=== PATIENT | male | born 1975 | race Caucasian/White ===

== ENCOUNTER 2019-01-20 14:03 | Emergency (ER) | payer MEDICARE, MEDICAID ==
[~2019-01-20] VITALS: Ht 170.2 cm; Wt 82.1 kg
[~2019-01-20 14:03] MED LIST: ARIP5TAB13; CELE100C; TRAZ300T2 PO
[2019-01-20 14:08] VITALS: BP 103/61
--- NOTE | 2019-01-20 14:23 | NUR ---
PT IN VIEW OF PT FOR SI.
--- NOTE | 2019-01-20 14:43 | NUR ---
Pt to rm 40, ambulatory with steady gait. Pt states he has been feeling depressed for the last couple days. Pt states "This happens to me sometimes". Pt denies precipitating factor to this episode. Pt states he would jump off a buliding to harm himself. Pt pleasant and cooperative with assessment and POC. All pt belongings placed in one bag, labeled with pt sticker and secured in locker. Pt positioned for comfort in bed, denies needs. Room is secured, sitter within eyesight of pt, all safety measures observed.
[2019-01-20 14:58] LABS: BASOPHILS # (AUTO) 0.04 x10^3/uL (0-0.1); BASOPHILS % (AUTO) 1 % (0-1); EOSINOPHILS # (AUTO) 0.19 x10^3/uL (0-0.4); EOSINOPHILS % (AUTO) 3 % (1-7); LYMPHOCYTES % (AUTO) 26 % (22-44); MD NO; MEAN CORPUSCULAR HEMOGLOBIN 32.6 pg (27.5-34.5); MEAN CORPUSCULAR HGB CONC 33.9 g/dL (33.2-36.2); MEAN CORPUSCULAR VOLUME 96.1 fL (81-97); MEAN PLATELET VOLUME 7.2 fL (7.4-10.4); MONOCYTES # (AUTO) 0.26 x10^3/uL (0.2-0.8); MONOCYTES % (AUTO) 4 % (2-9); NEUTROPHILS # (AUTO) 3.81 x10^3/uL (1.8-6.8); NEUTROPHILS % (AUTO) 66 % (42-75); PLATELET COUNT 178 x10^3/uL (130-400); RED BLOOD COUNT 4.75 x10^6/uL (4.38-5.82); RED CELL DISTRIBUTION WIDTH 12.6 % (9.4-14.8)
[2019-01-20 15:08] LABS: ALANINE AMINOTRANSFERASE 29 U/L (12-78); ALBUMIN 3.7 g/dL (3.4-5.0); ANION GAP 8 mmol/L (5-15); CALCIUM 8.8 mg/dL (8.5-10.1); CHLORIDE 108 mmol/L (98-107); CREATININE 1.09 mg/dL (0.7-1.3); SALICYLATE LEVEL 2.9 mg/dL (2.8-20.0)
[2019-01-20 15:11] LABS: ALKALINE PHOSPHATASE 67 U/L (45-117); BILIRUBIN,TOTAL 0.2 mg/dL (0.2-1.0); TOTAL PROTEIN 6.9 g/dL (6.4-8.2)
[2019-01-20 15:45] LABS: AMPHETAMINE SCREEN, URINE Negative (Negative); BARBITURATE SCREEN, URINE Negative (Negative); BENZODIAZEPINE SCREEN, URINE Negative (Negative); CANNABINOID SCREEN, URINE Negative (Negative); COCAINE SCREEN, URINE Negative (Negative); METHADONE SCREEN, URINE Negative (Negative); OPIATE SCREEN, URINE Negative (Negative)
--- NOTE | 2019-01-20 16:02 | NUR ---
Report to Aile[facility] CORRAL[facility]. Meal tray ordered for pt.
[2019-01-20] MEDS ORDERED: PRAZ2CAP2 PO (21:27)
[2019-01-20] MEDS ORDERED: METO-282 PO (21:30)
[2019-01-20] MEDS ORDERED: CARB200T4 PO (21:31)
[2019-01-20] MEDS ORDERED: BENZ2TAB6 PO (21:33)
[2019-01-20] MEDS ORDERED: CITA20TA9 PO (21:35)
[2019-01-20] MEDS ORDERED: ZOLP10TA PO (21:36)
== END 2019-01-20 17:01 ==
LOC: ED 16:05
DX: R45.851 Suicidal ideations (principal); F32.9 Major depressive disorder, single episode, unspecified; F17.200 Nicotine dependence, unspecified, uncomplicated
CPT/HCPCS: 36415; 80053; 80307; 85025; 99285

== ENCOUNTER 2020-03-20 18:14 | Inpatient (IN) | payer MEDICARE, MEDICAID ==
[~2020-03-20] VITALS: Ht 170.2 cm; Wt 92.6 kg
[~2020-03-20 18:14] MED LIST changes: +ARIP5TAB56 PO; +BENZ2TAB6 PO; +CARB200T4 PO; +CITA20TA9 PO; +HYDR25CA94 PO; +METO-282 PO; +METO25TA91 PO; +PRAZ2CAP2 PO; +TRAZ150T62 PO; +ZOLP10TA PO
[2020-03-20] MEDS ORDERED: ONDANSETRON ODT 4 MG PO PRN (20:00)
[2020-03-20] MEDS ORDERED: ACETAMINOPHEN 325 MG TABLET PO PRN (20:00)
[2020-03-20] MEDS ORDERED: BISACODYL 10 MG SUPP PR PRN (20:00)
[2020-03-20] MEDS ORDERED: POLYETHYLENE GLYCOL 17 GM PACKET PO PRN (20:00)
[2020-03-20] MEDS ORDERED: DOCUSATE 100 MG CAPSULE PO PRN (20:00)
[2020-03-20 20:54] VITALS: BP 111/73
[2020-03-20] MEDS ORDERED: PLEASE ENTER HEIGHT AND WEIGHT MC SCH (21:00)
[2020-03-20 21:30] VITALS: BP 111/73
[2020-03-20] MEDS: CARBAMAZEPINE 200 MG TABLET PO SCH (21:33)
[2020-03-20] MEDS: ARIPIPRAZOLE 10 MG TABLET PO SCH (21:34)
[2020-03-21 07:04] LABS: BASOPHILS # (AUTO) 0.01 x10^3/uL (0-0.1); BASOPHILS % (AUTO) 0 % (0-1); EOSINOPHILS % (AUTO) 5 % (1-7); LYMPHOCYTES % (AUTO) 25 % (22-44); MD NO; MEAN CORPUSCULAR VOLUME 96.9 fL (81-97); MEAN PLATELET VOLUME 7.3 fL (7.4-10.4); MONOCYTES # (AUTO) 0.37 x10^3/uL (0.2-0.8); MONOCYTES % (AUTO) 7 % (2-9); NEUTROPHILS # (AUTO) 3.57 x10^3/uL (1.8-6.8); NEUTROPHILS % (AUTO) 63 % (42-75); PLATELET COUNT 148 x10^3/uL (130-400); RED BLOOD COUNT 5.56 x10^6/uL (4.38-5.82); RED CELL DISTRIBUTION WIDTH 13.6 % (9.4-14.8)
[2020-03-21 07:16] VITALS: BP 110/71
[2020-03-21 07:19] LABS: ALANINE AMINOTRANSFERASE 34 U/L (12-78); ALBUMIN 3.7 g/dL (3.4-5.0); CALCIUM 9.4 mg/dL (8.5-10.1); CHLORIDE 109 mmol/L (98-107)
[2020-03-21 07:34] LABS: ALKALINE PHOSPHATASE 63 U/L (45-117); BILIRUBIN,TOTAL 0.6 mg/dL (0.2-1.0); CHOL/HDL RATIO 3.7; CHOLESTEROL, TOTAL 168 mg/dL (140-239); CREATININE 1.27 mg/dL (0.7-1.3); FREE T4 (FREE THYROXINE) 1.06 ng/dL (0.76-1.46); HDL CHOL % 27 % (26-37); HDL CHOLESTEROL (DIRECT) 45 mg/dL (40-60); LDL CHOLESTEROL,CALCULATED 95 mg/dL (54-169); LDL/HDL RATIO 2.1 (0.5-3.0); TOTAL PROTEIN 7.2 g/dL (6.4-8.2); TRIGLYCERIDES 141 mg/dL (50-200); VLDL CHOLESTEROL 28 mg/dL (0-25)
[2020-03-21 07:35] LABS: ANION GAP 5 mmol/L (5-15)
[2020-03-21] MEDS: CARBAMAZEPINE 200 MG TABLET PO SCH ×2 (08:12→20:14)
[2020-03-21] MEDS: ARIPIPRAZOLE 10 MG TABLET PO SCH ×2 (08:12→20:14)
[2020-03-21] MEDS: CITALOPRAM 20 MG TABLET PO SCH (08:12)
[2020-03-21 08:20] LABS: MICROSCOPIC NOT IND
[2020-03-21 08:34] LABS: AMPHETAMINE SCREEN, URINE Negative (Negative); BARBITURATE SCREEN, URINE Negative (Negative); BENZODIAZEPINE SCREEN, URINE Negative (Negative); CANNABINOID SCREEN, URINE Negative (Negative); COCAINE SCREEN, URINE Negative (Negative); METHADONE SCREEN, URINE Negative (Negative); OPIATE SCREEN, URINE Negative (Negative)
[2020-03-21] MEDS ORDERED: ALBUTEROL HFA 90 MCG/SPRAY INH PRN (11:30)
[2020-03-21 19:36] VITALS: BP 117/77
[2020-03-21] MEDS: PRAZOSIN 2 MG CAPSULE PO SCH (20:14)
[2020-03-22 07:05] VITALS: BP 112/70
[2020-03-22] MEDS: CITALOPRAM 20 MG TABLET PO SCH (08:04)
[2020-03-22] MEDS: METOPROLOL SUCCINATE 25 MG TAB.ER.24H PO SCH (08:04)
[2020-03-22] MEDS: CARBAMAZEPINE 200 MG TABLET PO SCH ×2 (08:04→20:32)
[2020-03-22] MEDS: ARIPIPRAZOLE 10 MG TABLET PO SCH ×2 (08:04→20:32)
[2020-03-22 19:30] VITALS: BP 130/85
[2020-03-22] MEDS: PRAZOSIN 2 MG CAPSULE PO SCH (20:33)
[2020-03-23 07:59] VITALS: BP 111/68
[2020-03-23] MEDS: METOPROLOL SUCCINATE 25 MG TAB.ER.24H PO SCH (08:42)
[2020-03-23] MEDS: CARBAMAZEPINE 200 MG TABLET PO SCH ×2 (08:42→20:19)
[2020-03-23] MEDS: ARIPIPRAZOLE 10 MG TABLET PO SCH ×2 (08:43→20:18)
[2020-03-23] MEDS ORDERED: CITALOPRAM 20 MG TABLET PO SCH (09:00)
[2020-03-23] MEDS ORDERED: ARIP10TA33 PO (10:43)
[2020-03-23] MEDS ORDERED: ALBU18HF INH (10:43)
[2020-03-23] MEDS ORDERED: FURO-93 PO (10:43)
[2020-03-23] MEDS ORDERED: HYDR50CA PO (10:43)
[2020-03-23] MEDS ORDERED: HYDROXYZINE PAMOATE 50MG CAP PO PRN (13:00)
[2020-03-23 19:50] VITALS: BP 104/67
[2020-03-23] MEDS: MELATONIN 5 MG TABLET PO PRN (20:18)
[2020-03-23] MEDS: PRAZOSIN 2 MG CAPSULE PO SCH (20:19)
[2020-03-23] MEDS: ZOLPIDEM 10MG TABLET PO PRN (20:19)
[2020-03-23] MEDS ORDERED: CARBAMAZEPINE 200 MG TABLET PO SCH (21:00)
[2020-03-24 07:02] VITALS: BP 112/77
[2020-03-24] MEDS: CARBAMAZEPINE 200 MG TABLET PO SCH ×2 (08:16→20:29)
[2020-03-24] MEDS: ARIPIPRAZOLE 10 MG TABLET PO SCH ×2 (08:17→20:28)
[2020-03-24] MEDS: CITALOPRAM 20 MG TABLET PO SCH (08:17)
[2020-03-24] MEDS: METOPROLOL SUCCINATE 25 MG TAB.ER.24H PO SCH (08:17)
[2020-03-24] MEDS: FUROSEMIDE 20 MG TABLET PO SCH (08:17)
[2020-03-24] MEDS ORDERED: ARIPIPRAZOLE 10 MG TABLET PO SCH (09:00)
[2020-03-24 20:00] VITALS: BP 119/68
[2020-03-24] MEDS: PRAZOSIN 2 MG CAPSULE PO SCH (20:28)
[2020-03-24] MEDS: ZOLPIDEM 10MG TABLET PO PRN (20:28)
[2020-03-24] MEDS: MELATONIN 5 MG TABLET PO PRN (20:29)
[2020-03-25 07:00] VITALS: BP 113/71
[2020-03-25] MEDS: METOPROLOL SUCCINATE 25 MG TAB.ER.24H PO SCH (07:52)
[2020-03-25] MEDS: CARBAMAZEPINE 200 MG TABLET PO SCH ×2 (07:53→20:39)
[2020-03-25] MEDS: CITALOPRAM 20 MG TABLET PO SCH (07:53)
[2020-03-25] MEDS: FUROSEMIDE 20 MG TABLET PO SCH (07:53)
[2020-03-25] MEDS: ARIPIPRAZOLE 10 MG TABLET PO SCH ×2 (07:54→20:34)
[2020-03-25 20:07] VITALS: BP 124/78
[2020-03-25] MEDS: ZOLPIDEM 10MG TABLET PO PRN (20:33)
[2020-03-25] MEDS: MELATONIN 5 MG TABLET PO PRN (20:34)
[2020-03-25] MEDS: PRAZOSIN 2 MG CAPSULE PO SCH (20:34)
[2020-03-26 07:39] VITALS: BP 100/65
[2020-03-26] MEDS: CARBAMAZEPINE 200 MG TABLET PO SCH ×2 (08:45→19:57)
[2020-03-26] MEDS: METOPROLOL SUCCINATE 25 MG TAB.ER.24H PO SCH (08:45)
[2020-03-26] MEDS: FUROSEMIDE 20 MG TABLET PO SCH (08:45)
[2020-03-26] MEDS: SERTRALINE 50MG TABLET PO SCH (08:45)
[2020-03-26] MEDS: ARIPIPRAZOLE 10 MG TABLET PO SCH ×2 (08:46→19:57)
[2020-03-26 19:45] VITALS: BP 99/63
[2020-03-26] MEDS: MELATONIN 5 MG TABLET PO PRN (19:56)
[2020-03-26] MEDS: ZOLPIDEM 10MG TABLET PO PRN (19:56)
[2020-03-26] MEDS: PRAZOSIN 2 MG CAPSULE PO SCH (19:57)
[2020-03-27 07:01] VITALS: BP 105/68
[2020-03-27] MEDS: METOPROLOL SUCCINATE 25 MG TAB.ER.24H PO SCH (09:00)
[2020-03-27] MEDS: CARBAMAZEPINE 200 MG TABLET PO SCH ×2 (09:00→20:04)
[2020-03-27] MEDS: FUROSEMIDE 20 MG TABLET PO SCH (09:00)
[2020-03-27] MEDS: SERTRALINE 50MG TABLET PO SCH (09:00)
[2020-03-27] MEDS: ARIPIPRAZOLE 10 MG TABLET PO SCH ×2 (09:00→20:04)
[2020-03-27 19:56] VITALS: BP 106/68
[2020-03-27] MEDS: ZOLPIDEM 10MG TABLET PO PRN (20:04)
[2020-03-27] MEDS: MELATONIN 5 MG TABLET PO PRN (20:04)
[2020-03-27] MEDS: PRAZOSIN 2 MG CAPSULE PO SCH (20:04)
[2020-03-28 07:08] VITALS: BP 110/70
[2020-03-28] MEDS: SERTRALINE 50MG TABLET PO SCH (08:06)
[2020-03-28] MEDS: CARBAMAZEPINE 200 MG TABLET PO SCH ×2 (08:06→20:08)
[2020-03-28] MEDS: METOPROLOL SUCCINATE 25 MG TAB.ER.24H PO SCH (08:06)
[2020-03-28] MEDS: ARIPIPRAZOLE 10 MG TABLET PO SCH ×2 (08:07→20:08)
[2020-03-28] MEDS: FUROSEMIDE 20 MG TABLET PO SCH (08:35)
[2020-03-28 19:41] VITALS: BP 113/70
[2020-03-28] MEDS: ZOLPIDEM 10MG TABLET PO PRN (20:08)
[2020-03-28] MEDS: MELATONIN 5 MG TABLET PO PRN (20:08)
[2020-03-28] MEDS: PRAZOSIN 2 MG CAPSULE PO SCH (20:09)
[2020-03-29 07:17] VITALS: BP 114/72
[2020-03-29] MEDS: ARIPIPRAZOLE 10 MG TABLET PO SCH (09:11)
[2020-03-29] MEDS: CARBAMAZEPINE 200 MG TABLET PO SCH (09:11)
[2020-03-29] MEDS: METOPROLOL SUCCINATE 25 MG TAB.ER.24H PO SCH (09:11)
[2020-03-29] MEDS: FUROSEMIDE 20 MG TABLET PO SCH (09:12)
[2020-03-29] MEDS: SERTRALINE 50MG TABLET PO SCH (09:12)
[2020-03-29] MEDS ORDERED: HYDR50CA2 PO (11:00)
[2020-03-29] MEDS ORDERED: PRAZ2CAP2 PO (11:00)
[2020-03-29] MEDS ORDERED: SERT50TA28 PO (11:00)
[2020-03-29] MEDS ORDERED: CARB200T4 PO (11:00)
[2020-03-29] MEDS ORDERED: BENZ2TAB6 PO (11:00)
[2020-03-29] MEDS ORDERED: ARIP10TA33 PO (11:00)
== END 2020-03-29 12:00 | disposition home or self-care (01) | DRG 885 ==
LOC: 3E 20:31
PROVIDERS: ADMIT Psychiatry & Neurology Psychosomatic Medicine; ATTEND Psychiatry & Neurology Psychosomatic Medicine
DX: F31.5 Bipolar disorder, current episode depressed, severe, with psychotic features (principal); R45.851 Suicidal ideations; F17.210 Nicotine dependence, cigarettes, uncomplicated; F51.5 Nightmare disorder; G47.00 Insomnia, unspecified; G89.29 Other chronic pain; I10 Essential (primary) hypertension; I49.9 Cardiac arrhythmia, unspecified; J45.20 Mild intermittent asthma, uncomplicated; Z79.899 Other long term (current) drug therapy; Z88.5 Allergy status to narcotic agent; Z95.0 Presence of cardiac pacemaker
CPT/HCPCS: 36415; 71045; 80053; 80061; 80307; 81003; 82607; 84439; 84443; 85025; 93005